=== PATIENT | male | born 2000 | race Caucasian/White ===

== ENCOUNTER 2020-04-30 17:07 | Emergency (ER) | payer MEDICAID ==
[~2020-04-30] VITALS: Ht 182.9 cm; Wt 67.0 kg
[2020-04-30 17:12] VITALS: BP 129/76
[2020-04-30] MEDS ORDERED: IBUP-1984 PO (17:47)
[2020-04-30] MEDS ORDERED: CARB15DR65 LEFT EAR (17:47)
[2020-04-30] MEDS ORDERED: PENI500T2 PO (17:47)
== END 2020-04-30 18:02 | disposition home or self-care (01) ==
LOC: ER 17:08
DX: K04.7 Periapical abscess without sinus (principal); H61.21 Impacted cerumen, right ear; R51.9 Headache, unspecified; Z79.2 Long term (current) use of antibiotics; Z79.899 Other long term (current) drug therapy
CPT/HCPCS: 99283

== ENCOUNTER 2021-04-18 18:15 | Emergency (ER) | payer MEDICAID ==
[~2021-04-18] VITALS: Ht 182.9 cm; Wt 90.9 kg
[~2021-04-18 18:15] MED LIST: CARB15DR65 LEFT EAR
[2021-04-18 18:41] VITALS: BP 125/78
== END 2021-04-18 21:09 | disposition left against medical advice (07) ==
LOC: ER 18:16
DX: H92.02 Otalgia, left ear (principal); Z53.21 Procedure and treatment not carried out due to patient leaving prior to being seen by health care provider